=== PATIENT | female | born 1980 | race Caucasian/White ===

== ENCOUNTER 2023-05-31 10:59 | Outpatient (AMB) | payer OTHER, SELFPAY ==
--- NOTE | 2023-05-31 11:04 | AM.OFFWIN_ITS ---
Intake Vital Signs 05/31/23 11:05 Height 5 ft 11 in Weight 203 lb 8 oz BMI 28.4 BP 140/70 H Blood Pressure Location Rt brachial Position Sitting Pulse 81 Pulse Source Pulse Oximeter Pulse Oximetry (%) 98 Oxygen Delivery Method Room Air Intake Visit Reasons: back pain Intake Note: Patient is here today for upper right shoulder blade area pain ongoing for a couple of days. Patient Tobacco Use Status: Never used Tobacco Survey Compiler Required: No Ultrasound Technol: Not Required per policy Accompanied by: Self / Same As Patient Allergies No Known Allergies Allergy (Verified 05/31/23 11:27) Medication List - Last Reconciled 05/31/23 by Haydee Tate, [facility]- amoxicillin 500 mg PO TID Do you need a note to return to daycare/school/sports/work: No HPI HPI Comments History of Present Illness Details here with r shoulder blade pain - HPI hard to obtain as her timeline and recall is poor. started in the last few days hurts when twisting pain comes and goes described as it hurts worse when turning to the right assoc w/ constipation. chronic. does not take anything for this. last BM yesterday. pain in shoulder blade area was worse when straining to move bowels yesterday. has ibs, not on meds as doesnt like to take meds. not active w pcp or gi d/t insurance issues Denies vomiting, diarrhea. +headache sometimes. admits dental infection. currently on amox for this as managed by dentist. has several other chronic complaints that i advised would need add'l appt to discuss, preferably w PCP PFS Social History Housing: Apartment Patient Tobacco Use Status: Never used Tobacco service: No Current occupational status: employed Cognitive needs: No Hearing needs: No Vision needs: Yes Review of Systems Const All systems reviewed & are unremarkable except as noted in HPI and below Physical Exam Vital Signs: Last Vital Signs Pulse 81 05/31/23 11:05 BP 140/70 H 05/31/23 11:05 Pulse Ox 98 05/31/23 11:05 Oxygen Delivery Method Room Air 05/31/23 11:05 BMI result Body Mass Index 28.4 Const Other: awake alert odd affect scleras clear bilat MMM LS CTAB RRR Abd soft, nontender, hypoactive bs x 4 quads, negative murphys, no peritoneal signs negative CVAT skin to back with excoriations unable to reproduce pain. FROM MURRAY x 4 strength WNL Assessment & Plan Assessment & Plan (1) Constipation: Code(s): K59.00 - Constipation, unspecified Qualifiers: Constipation type: slow transit constipation Qualified Code(s): K59.01 - Slow transit constipation Plan: . Plan advised to take as directed. fu with PCP to ensure this has worked adn to discuss other complaints mentioned today that were not relevant to r shoulder blade pain, which i think is likely gas. Medications: New polyethylene glycol 3350 (Miralax) 17 grams PO DAILY 30 ea 3RF Coding Level of Care Code Est Pt Level 4 (79679) Diagnoses Slow transit constipation K59.01 Constipation type: slow transit constipation
[2023-05-31 11:05] VITALS: BP 140/70; PULSE 81; O2SAT 98; BMI 28.4
== END 2023-05-31 11:37 | disposition home or self-care (01) ==
PROVIDERS: Visit Provider Nurse Practitioner Family
DX: K59.01 Slow transit constipation (principal)
CPT/HCPCS: 99214

== ENCOUNTER 2023-06-01 12:01 | Outpatient (AMB) | payer OTHER, SELFPAY ==
[2023-06-01 12:02] VITALS: BP 124/68; PULSE 92; TEMP 36.7; O2SAT 99; BMI 28.2
--- NOTE | 2023-06-01 12:02 | AM.OFFWIN_ITS ---
Intake Vital Signs 06/01/23 12:02 Height 5 ft 11 in Weight 202 lb 6 oz BMI 28.2 BP 124/68 Blood Pressure Location Rt brachial Position Sitting Pulse 92 Pulse Source Pulse Oximeter Temp 98.1 F Temp Source Temporal Artery Scan Pulse Oximetry (%) 99 Oxygen Delivery Method Room Air Intake Visit Reasons: EP RT back pain dry cough [phone] Intake Note: pt is here today for rt back pain dry cough started monday Patient Tobacco Use Status: Never used Tobacco Allergies No Known Allergies Allergy (Verified 06/01/23 12:11) Do you need a note to return to daycare/school/sports/work: Yes HPI HPI Comments History of Present Illness Details The patient presents to urgent care for evaluation of right upper back pain. She states that she has had this pain for greater than 6 months and has been seen for in the past. She is questioning if this is tied to her constipation issues. She has lower abdominal discomfort that she has sought medical attention for and was diagnosed with constipation. She reports that the right upper back pain is associated with movement. There is no shortness of breath or coughing no fever chills nausea vomiting. Patient reports she is currently on amoxicillin for a dental infection. [facility] Social History Housing: Apartment Patient Tobacco Use Status: Never used Tobacco service: No Current occupational status: employed Cognitive needs: No Hearing needs: No Vision needs: Yes Review of Systems Const Denies weakness Eyes Reports no additional complaints ENT Denies dysphagia Card Reports no additional complaints, Denies dyspnea and Denies dyspnea on exertion Resp Denies cough, Denies hemoptysis, Denies dyspnea and Denies dyspnea on exertion GI Denies dysphagia Denies urinary incontinence Musc Reports back pain, Denies muscle weakness, Denies numbness and Denies tingling Neuro Denies focal weakness, Denies numbness, Denies tingling, Denies paresthesias and Denies weakness Physical Exam Vital Signs: Last Vital Signs Temp 98.1 F 06/01/23 12:02 Pulse 92 06/01/23 12:02 BP 124/68 06/01/23 12:02 Pulse Ox 99 06/01/23 12:02 Oxygen Delivery Method Room Air 06/01/23 12:02 BMI result Body Mass Index 28.2 Const General: healthy appearing and no acute distress Orientation/consciousness: patient oriented x3 Eyes General: appearance normal, both eyes and all related structures Pupils: Equal, round and reactive pupils present Resp Effort & Inspection: normal respiratory effort and able to speak in complete sentences General: Yes no CVA tenderness Back/Spine/Pelvis Back: no CVA tenderness Thoracic/Lumbar Spine: thoracic and lumbar spine normal to inspection and paraspinal muscle tenderness (spasm of paraspinal musculature) on the right greater than left Neuro General: patient oriented x3 and Normal light touch and pain sensation Cranial nerves: Yes Equal, round and reactive pupils present Assessment & Plan Assessment & Plan (1) Right-sided thoracic back pain: Code(s): M54.6 - Pain in thoracic spine Plan I reassured the patient that her symptoms are unrelated to constipation or a urinary tract infection as she was also enquiring about. We will obtain an x- ray as she reports she has never had a chest x-ray to evaluate the upper back area. I also suggested that I believe the symptoms are related to musculoskeletal such as muscle strain. Recommend ibuprofen and Tylenol. Orders: Orders XR chest 2V Today R07.81 - Pleurodynia Coding Level of Care Code Est Pt Level 3 (70815) Diagnoses Right-sided thoracic back pain M54.6
== END 2023-06-01 12:31 | disposition home or self-care (01) ==
PROVIDERS: Visit Provider Emergency Medicine
DX: M54.6 Pain in thoracic spine (principal)
CPT/HCPCS: 99213

== ENCOUNTER 2023-06-01 12:21 | Outpatient (REF) | payer OTHER, SELFPAY ==
--- NOTE | ~2023-06-01 | XR_ITS ---
EXAMINATION: XR CHEST CLINICAL INFORMATION: Chest pain. COMPARISON: None available. TECHNIQUE: 2 views of the chest were obtained. FINDINGS: No significant abnormality is noted involving the heart, lungs, mediastinum, bony thorax or soft tissues. XR/XR chest 2V IMPRESSION: Unremarkable examination.
== END 2023-06-01 12:22 | disposition home or self-care (01) ==
LOC: HO.HMGCX 12:21
PROVIDERS: PCP Internal Medicine; Visit Provider Emergency Medicine
DX: R07.81 Pleurodynia (principal)
CPT/HCPCS: 71046

== ENCOUNTER 2023-06-28 13:00 | Outpatient (AMB) | payer MEDICAID, SELFPAY ==
[2023-06-28 13:18] VITALS: BP 120/78; PULSE 98; O2SAT 98; BMI 28.5
--- NOTE | 2023-06-28 13:18 | A.OFFPC_ITS ---
Vital Signs 06/28/23 13:18 Height 5 ft 11 in Weight 204 lb 4 oz BMI 28.5 BP 120/78 Blood Pressure Location Rt brachial Position Sitting Pulse 98 Pulse Source Pulse Oximeter Pulse Oximetry (%) 98 Oxygen Delivery Method Room Air Intake Visit Reasons: back pain Allergies No Known Allergies Allergy (Verified 06/28/23 13:19) Medication List - Last Reconciled 06/28/23 by Rosanne Ring MD No Known Home Meds Tobacco use date assessed: 06/28/23 Dental Screening Dental Screen Date: 06/28/23 Did you have a dental visit in the last 12 months?: Yes Did you have a dental problem in the last 6 months where you did not have access to dental care?: No Was dental information given to patient?: Patient has dentist HPI back pain HPI Details Patient is a 43-year-old female came in today to talk about few medical problems She was last seen November of last year as an establish care visit, after that patient stopped coming as she had different insurance. Recently patient has changed her insurance so she came in. Patient have irritable bowel syndrome alternating diarrhea and constipation She also need OBGYN appointment, complaining of pressure-like feeling in pelvic area I did order labs for her last visit which she never did, I am ordering nonfasting labs today so we can have it done today. I have added urinalysis as well. Currently patient is renting a room by her mother and living there Complaining of feeling sad and depressed often along with anxiety She is seeing no therapist. After the lab reports we will set up a telemedicine visit and address other issues of the patient. [facility] Social History Housing: Apartment Patient Tobacco Use Status: Never used Tobacco e-Cigarette/Vaping Use: Never Used service: No Current occupational status: employed Cognitive needs: No Hearing needs: No Vision needs: Yes Questionnaire AUDIT C Alcohol Use Questionnaire (AUDIT-C) 1. How often do you have a drink containing alcohol?: Never 3. How often do you have six or more drinks on one occasion?: Never Total Score: 0 Score Reviewed/Action Taken: Yes Review of Systems Const Denies chills and Denies fever(s) ENT Denies epistaxis and Denies nasal discharge Card Denies chest pain Resp Denies chest congestion, Denies cough and Denies hemoptysis GI Denies nausea Skin/Breast Denies rash Neuro Reports no additional complaints Psych Reports no additional complaints Endo Reports no additional complaints Physical exam (Primary Care) Vital Signs: Last Vital Signs Pulse 98 06/28/23 13:18 BP 120/78 06/28/23 13:18 Pulse Ox 98 06/28/23 13:18 Oxygen Delivery Method Room Air 06/28/23 13:18 BMI result Body Mass Index 28.5 Tobacco/Smoking Status: Tobacco use Status Tobacco use date assessed 06/28/23 06/28/23 13:19 Patient Tobacco Use Status Never used Tobacco 06/28/23 13:19 e-Cigarette/Vaping Use Never Used 06/28/23 13:19 Const General: cooperative, comfortable and no acute distress Orientation/consciousness: patient oriented x3 HENMT Head: Yes normocephalic Eyes General: appearance normal, both eyes and all related structures Neck Neck: Yes supple Resp Effort & Inspection: normal respiratory effort, no cough and no stridor Cardio Rhythm: regular rhythm Heart sounds: S1 normal heart sound present and S2 normal heart sound present GI Other: Abdomen is benign no pain bowel sound positive General: Yes no CVA tenderness Back/Spine/Pelvis Back: no CVA tenderness Skin General skin exam: turgor normal Neuro General: patient oriented x3, tone normal and moves all extremities Extrem Right lower extremity: no edema Left lower extremity: no edema Assessment and Plan Assessment & Plan (1) Pelvic pressure in female: Code(s): R10.2 - Pelvic and perineal pain (2) Lower back pain: Code(s): M54.50 - Low back pain, unspecified Qualifiers: Back pain laterality: unspecified Chronicity: chronic Sciatica presence: without sciatica Qualified Code(s): M54.50 - Low back pain, unspecified; G89.29 - Other chronic pain (3) Major depression, recurrent: Code(s): F33.9 - Major depressive disorder, recurrent, unspecified Qualifiers: Active/Remission status: currently active Major depression episode severity: mild Qualified Code(s): F33.0 - Major depressive disorder, recurrent, mild (4) Anxiety, generalized: Code(s): F41.1 - Generalized anxiety disorder (5) Ill feeling: Code(s): R68.89 - Other general symptoms and signs (6) Irritable bowel syndrome: Code(s): K58.9 - Irritable bowel syndrome without diarrhea Qualifiers: Irritable bowel syndrome type: with both diarrhea and constipation Qualified Code(s): K58.2 - Mixed irritable bowel syndrome Plan Patient is a 43-year-old female came in today to talk about few medical problems She was last seen November of last year as an establish care visit, after that patient stopped coming as she had different insurance. Recently patient has changed her insurance so she came in. Patient have irritable bowel syndrome alternating diarrhea and constipation She also need OBGYN appointment, complaining of pressure-like feeling in pelvic area I did order labs for her last visit which she never did, I am ordering nonfasting labs today so we can have it done today. I have added urinalysis as well. Currently patient is renting a room by her mother and living there Complaining of feeling sad and depressed often along with anxiety She is seeing no therapist. After the lab reports we will set up a telemedicine visit and address other issues of the patient. Also suffers from chronic back pain, nonradiating Orders: Orders Complete Blood Count Auto Diff Today F33.9 - Major depressive disorder, recurrent, unspecified, F41.1 - Generalized anxiety disorder, K58.9 - Irritable bowel syndrome without diarrhea, M54.50 - Low back pain, unspecified, R10.2 - Pelvic and perineal pain, R68.89 - Other general symptoms and signs Vitamin D 25-OH (D2 and D3) Today F33.9 - Major depressive disorder, recurrent, unspecified, F41.1 - Generalized anxiety disorder, K58.9 - Irritable bowel syndrome without diarrhea, M54.50 - Low back pain, unspecified, R10.2 - Pelvic and perineal pain, R68.89 - Other general symptoms and signs Vitamin B12 Today F33.9 - Major depressive disorder, recurrent, unspecified, F41.1 - Generalized anxiety disorder, K58.9 - Irritable bowel syndrome without diarrhea, M54.50 - Low back pain, unspecified, R10.2 - Pelvic and perineal pain, R68.89 - Other general symptoms and signs Comprehensive Met. Panel Today F33.9 - Major depressive disorder, recurrent, unspecified, F41.1 - Generalized anxiety disorder, K58.9 - Irritable bowel syndrome without diarrhea, M54.50 - Low back pain, unspecified, R10.2 - Pelvic and perineal pain, R68.89 - Other general symptoms and signs LDL Cholesterol Direct Today F33.9 - Major depressive disorder, recurrent, unspecified, F41.1 - Generalized anxiety disorder, K58.9 - Irritable bowel syndrome without diarrhea, M54.50 - Low back pain, unspecified, R10.2 - Pelvic and perineal pain, R68.89 - Other general symptoms and signs TSH reflex Free T4 Today F33.9 - Major depressive disorder, recurrent, unsp ecified, F41.1 - Generalized anxiety disorder, K58.9 - Irritable bowel syndrome without diarrhea, M54.50 - Low back pain, unspecified, R10.2 - Pelvic and perineal pain, R68.89 - Other general symptoms and signs UA CC w/rflx Micro + Cult Today F33.9 - Major depressive disorder, recurrent, unspecified, F41.1 - Generalized anxiety disorder, K58.9 - Irritable bowel syndrome without diarrhea, M54.50 - Low back pain, unspecified, R10.2 - Pelvic and perineal pain, R68.89 - Other general symptoms and signs Coding Level of Care Code Est Pt Level 4 (14824) Diagnoses Pelvic pressure in female R10.2 Chronic low back pain without sciatica, unspecified back pain laterality M54.50; G89.29 Back pain laterality: unspecified Chronicity: chronic Sciatica presence: without sciatica Mild episode of recurrent major depressive disorder F33.0 Active/Remission status: currently active Major depression episode severity: mild Anxiety, generalized F41.1 Ill feeling R68.89 Irritable bowel syndrome with both constipation and diarrhea K58.2 Irritable bowel syndrome type: with both diarrhea and constipation
== END 2023-06-28 14:56 | disposition home or self-care (01) ==
PROVIDERS: PCP Internal Medicine; Visit Provider Internal Medicine
DX: R10.2 Pelvic and perineal pain (principal); M54.50 Low back pain, unspecified; G89.29 Other chronic pain; F33.0 Major depressive disorder, recurrent, mild; F41.1 Generalized anxiety disorder; R68.89 Other general symptoms and signs; K58.2 Mixed irritable bowel syndrome
CPT/HCPCS: 99214

== ENCOUNTER 2023-06-28 13:39 | Outpatient (REF) | payer MEDICAID, SELFPAY ==
[2023-06-28 16:27] LABS: Appearance Urine Clear; Color Urine Yellow; Glucose Urine UA Negative (Negative); Leukocyte Esterase Urine Trace (Negative); Nitrite Urine Negative (Negative); Specific Gravity - Urine 1.025 (1.005-1.025); UMIC TRIGGER UACC YES; Urine Blood Negative (Negative); Urine Ketones Trace mg/dL (Negative); Urine Protein Negative (Neg-Trace)
[2023-06-28 16:31] LABS: MANUAL DIFF FLAG NO
[2023-06-28 16:33] LABS: Bacteria Urine Trace (None Seen); Hyaline Casts Urine 0-2 /LPF (0-2); RBC Urine 0-2 /HPF (0-2); WBC Urine 0-5 /HPF (0-5)
[2023-06-28 16:43] LABS: Basophils Absolute Auto 0.1 X10*3/uL (0.0-0.2); Basophils Percent Auto 0.8 % (0-2); Eosinophils Absolute Auto 0.2 X10*3/uL (0.0-0.4); Eosinophils Percent Auto 2.4 % (0-4); Hematocrit 42.8 % (37.0-47.0); Hemoglobin 13.6 g/dl (12.0-16.0); Imm Gran Abs Auto 0.02 X10*3/uL (0.00-0.03); Imm Gran Pct Auto 0.2 % (0.0-0.4); Mean Corpuscular HGB Conc 31.8 g/dl (31.0-35.0); Mean Corpuscular Hemoglobin 28.6 pg (27.0-33.0); Mean Corpuscular Volume 89.9 fL (80.0-98.0); Mean Platelet Volume 11.3 fL (9.4-12.3); Monocytes Absolute Auto 0.7 X10*3/uL (0.1-1.2); Monocytes Percent Auto 7.7 % (2-11); Neutrophils Absolute Auto 5.4 x10*3/uL (2.0-8.3); Neutrophils Percent Auto 64.9 % (45-73); Platelet Count 290 X10*3/uL (160-400); Red Blood Count 4.76 X10*6/uL (4.20-5.50); Red Cell Distribution Width 13.4 % (11.0-16.0); White Blood Count 8.4 X10*3/uL (4.8-10.8)
[2023-06-28 17:05] LABS: Alanine Aminotransferase 15 U/L (0-31); Alkaline Phosphatase 64 U/L (39-117); Anion Gap 11 (12-20); Aspartate Amino Transferase 15 U/L (5-31); Bilirubin Total 0.4 mg/dL (0.0-1.0); Blood Urea Nitrogen 10 mg/dL (9-16); Calcium 9.4 mg/dL (8.4-10.2); Carbon Dioxide 28 mmol/L (22-29); Chloride 104 mmol/L (96-108); Estimated Glomerular Filt Rate > 60; Glucose Random 93 mg/dL (60-115); Potassium 3.6 mmol/L (3.3-5.1); Sodium 139 mmol/L (135-145)
[2023-06-28 17:22] LABS: TSH reflex Free T4 1.25 uIU/mL (0.32-4.0)
[2023-06-28 17:26] LABS: Vitamin B12 324 pg/mL (200-900)
[2023-06-29 14:02] LABS: LDL Cholesterol Direct 124 mg/dL (<100)
[2023-07-02 13:04] LABS: Vitamin D 25-OH, D2 <4 ng/mL; Vitamin D 25-OH, D3 14 ng/mL; Vitamin D 25-OH, Total 14 ng/mL (30-100)
== END 2023-06-28 13:40 | disposition home or self-care (01) ==
LOC: HO.HMGCLDS 13:39
PROVIDERS: PCP Internal Medicine; Visit Provider Internal Medicine
DX: R68.89 Other general symptoms and signs (principal); R10.2 Pelvic and perineal pain; M54.50 Low back pain, unspecified; K58.9 Irritable bowel syndrome, unspecified; F33.9 Major depressive disorder, recurrent, unspecified; F41.1 Generalized anxiety disorder
CPT/HCPCS: 36415; 80053; 81001; 82306; 82607; 83721; 84443; 85025

== ENCOUNTER 2023-06-29 08:32 | Outpatient (AMB) | payer OTHER, SELFPAY ==
--- NOTE | 2023-06-29 08:32 | A.OFFPC_ITS ---
Vital Signs 06/29/23 08:33 Height 5 ft 11 in Intake Visit Reasons: F/U [phone] Allergies No Known Allergies Allergy (Verified 06/29/23 08:32) Medication List - Last Reconciled 06/29/23 by Rosanne Ring MD No Known Home Meds Tobacco use date assessed: 06/29/23 Dental Screening Dental Screen Date: 06/29/23 Did you have a dental visit in the last 12 months?: Yes Did you have a dental problem in the last 6 months where you did not have access to dental care?: No Was dental information given to patient?: Patient has dentist HPI F/U [phone] HPI Details This is a telemedicine follow-up Patient was seen yesterday with multiple complaints She is depressed she admit also have anxiety Patient have a chronic lower back pain chronic mid back pain, she says that when she stands for prolonged period of time the pain gets worse But when she lays down it is better Pain is nonradiating Also complaining of headaches off and on, patient was concerned about diabetes Labs done yesterday reviewed with the patient which looks fine There is no anemia no signs of elevated white count infection, kidney functions are intact liver functions are intact, and her blood sugar is fine B12 level is normal LDL is still pending Vitamin-D still pending Thyroid test is within normal limit. I have sent message to OBGYN yesterday they wanted a new referral which I have placed for the patient I am starting her on Lexapro 10 mg, notified patient to start taking that at night I have also sent message to behavior health coordinator so we can set up patient with a therapist We will set up a follow-up appointment in 2 or 3 weeks to see how she is doing with new medication. [facility] Social History Housing: Apartment Patient Tobacco Use Status: Never used Tobacco e-Cigarette/Vaping Use: Never Used service: No Current occupational status: employed Cognitive needs: No Hearing needs: No Vision needs: Yes Questionnaire AUDIT C Alcohol Use Questionnaire (AUDIT-C) 1. How often do you have a drink containing alcohol?: Never 3. How often do you have six or more drinks on one occasion?: Never Total Score: 0 Score Reviewed/Action Taken: Yes Review of Systems Const Denies chills and Denies fever(s) ENT Denies epistaxis and Denies nasal discharge Card Denies chest pain Resp Denies chest congestion, Denies cough and Denies hemoptysis GI Denies diarrhea and Denies nausea Skin/Breast Denies rash Neuro Reports no additional complaints Psych Reports no additional complaints Endo Reports no additional complaints Physical exam (Primary Care) Tobacco/Smoking Status: Tobacco use Status Tobacco use date assessed 06/29/23 06/29/23 08:33 Patient Tobacco Use Status Never used Tobacco 06/29/23 08:33 e-Cigarette/Vaping Use Never Used 06/29/23 08:33 Telehealth Telehealth Location of provider rendering services: practice address Location of patient: address on file Patient Identification confirmed using: Name, : Yes Telehealth method: video (attempted) Patient verbally consented to treatment: Yes Patient verbally consented to billing insurance company: Yes Patient informed of any privacy concerns related to visit: Yes Results Reviewed Results Reviewed: labs reviewed Assessment and Plan Assessment & Plan (1) Major depression, recurrent: Code(s): F33.9 - Major depressive disorder, recurrent, unspecified Qualifiers: Active/Remission status: currently active Major depression episode severity: mild Qualified Code(s): F33.0 - Major depressive disorder, recurrent, mild (2) Lower back pain: Code(s): M54.50 - Low back pain, unspecified Qualifiers: Back pain laterality: unspecified Chronicity: chronic Sciatica presence: without sciatica Qualified Code(s): M54.50 - Low back pain, unspecified; G89.29 - Other chronic pain (3) Anxiety, generalized: Code(s): F41.1 - Generalized anxiety disorder (4) Ill feeling: Code(s): R68.89 - Other general symptoms and signs (5) Irritable bowel syndrome: Code(s): K58.9 - Irritable bowel syndrome without diarrhea Qualifiers: Irritable bowel syndrome type: with both diarrhea and constipation Qualified Code(s): K58.2 - Mixed irritable bowel syndrome Plan This is a telemedicine follow-up Patient was seen yesterday with multiple complaints She is depressed she admit also have anxiety Patient have a chronic lower back pain chronic mid back pain, she says that when she stands for prolonged period of time the pain gets worse But when she lays down it is better Pain is nonradiating Also complaining of headaches off and on, patient was concerned about diabetes Labs done yesterday reviewed with the patient which looks fine There is no anemia no signs of elevated white count infection, kidney functions are intact liver functions are intact, and her blood sugar is fine B12 level is normal LDL is still pending Vitamin-D still pending Thyroid test is within normal limit. I have sent message to [facility] yesterday they wanted a new referral which I have placed for the patient I am starting her on Lexapro 10 mg, notified patient to start taking that at night I have also sent message to behavior health coordinator so we can set up patient with a therapist We will set up a follow-up appointment in 2 or 3 weeks to see how she is doing with new medication. Her urine test shows trace of leuk Estrace, patient have Levaquin at home, she will take 1 tablet to clear that. Continued to have irritable bowel symptoms, which present with mixed diarrhea alternating with constipation. Orders: Orders XR lumbar spine 2-3V Today M54.50 - Low back pain, unspecified Medications: New escitalopram oxalate (Lexapro) 10 mg PO DAILY 30 tabs 0RF Coding Level of Care Code Tele Est Pt Level 4 (98504) Diagnoses Mild episode of recurrent major depressive disorder F33.0 Active/Remission status: currently active Major depression episode severity: mild Chronic low back pain without sciatica, unspecified back pain laterality M54.50; G89.29 Back pain laterality: unspecified Chronicity: chronic Sciatica presence: without sciatica Anxiety, generalized F41.1 Ill feeling R68.89 Irritable bowel syndrome with both constipation and diarrhea K58.2 Irritable bowel syndrome type: with both diarrhea and constipation Time Spent (min) 33 Comment 3 prep, 25 with patient, 5 charting
== END 2023-06-29 09:28 | disposition home or self-care (01) ==
LOC: HO.HMGC 08:32
PROVIDERS: PCP Internal Medicine; Visit Provider Internal Medicine
DX: F33.0 Major depressive disorder, recurrent, mild (principal); M54.50 Low back pain, unspecified; G89.29 Other chronic pain; F41.1 Generalized anxiety disorder; R68.89 Other general symptoms and signs; K58.2 Mixed irritable bowel syndrome
CPT/HCPCS: 99214

== ENCOUNTER 2023-07-20 08:37 | Outpatient (AMB) | payer OTHER, SELFPAY ==
--- NOTE | 2023-07-20 08:59 | MHC.PC.OV ---
Vital Signs 07/20/23 08:59 Height 5 ft 11 in Intake Visit Reasons: 3 Wk F/u ~[phone] Allergies No Known Allergies Allergy (Verified 07/20/23 08:59) Medication List - Last Reconciled 07/20/23 by Rosanne Ring MD escitalopram oxalate (Lexapro) 10 mg PO DAILY Tobacco use date assessed: 07/20/23 Dental Screening Dental Screen Date: 07/20/23 Did you have a dental visit in the last 12 months?: Yes Did you have a dental problem in the last 6 months where you did not have access to dental care?: No Was dental information given to patient?: Patient has dentist HPI 3 Wk F/u ~[phone] HPI Details Patient is a 43-year-old female this is a telemedicine follow-up I prescribed Escitalopram 10 mg to patient few days ago however she has not started it. She says that she is not sure if she want to take the medication or not. Encouraged patient to give it a try, at least take it for a month and then decide if she want to continue or not Patient continued to feel depressed, she is seeing a therapist Continued to feel tired, and is concerned about her here as well I have sent multivitamin tablet also she is to start taking that 1 in the morning Patient is to get back to me in 3 weeks if she decide to take Escitalopram [facility] Social History Housing: Apartment Patient Tobacco Use Status: Never used Tobacco e-Cigarette/Vaping Use: Never Used service: No Current occupational status: employed Cognitive needs: No Hearing needs: No Vision needs: Yes Questionnaire AUDIT C Alcohol Use Questionnaire (AUDIT-C) 1. How often do you have a drink containing alcohol?: Never 3. How often do you have six or more drinks on one occasion?: Never Total Score: 0 Score Reviewed/Action Taken: Yes Review of Systems Const Denies chills and Denies fever(s) ENT Denies epistaxis and Denies nasal discharge Card Denies chest pain Resp Denies chest congestion, Denies cough and Denies hemoptysis GI Denies diarrhea and Denies nausea Skin/Breast Denies rash Neuro Reports no additional complaints Psych Reports no additional complaints Endo Reports no additional complaints Physical exam (Primary Care) Tobacco/Smoking Status: Tobacco use Status Tobacco use date assessed 07/20/23 07/20/23 08:59 Patient Tobacco Use Status Never used Tobacco 07/20/23 08:59 e-Cigarette/Vaping Use Never Used 07/20/23 08:59 Telehealth Telehealth Location of provider rendering services: practice address Location of patient: address on file Patient Identification confirmed using: Name, : Yes Telehealth method: voice only Patient verbally consented to treatment: Yes Patient verbally consented to billing insurance company: Yes Patient informed of any privacy concerns related to visit: Yes Minutes spent on Phone/Video with Pt.: 13 Assessment and Plan Assessment & Plan (1) Major depression, recurrent: Code(s): F33.9 - Major depressive disorder, recurrent, unspecified Qualifiers: Active/Remission status: currently active Major depression episode severity: mild Qualified Code(s): F33.0 - Major depressive disorder, recurrent, mild (2) Anxiety, generalized: Code(s): F41.1 - Generalized anxiety disorder Plan Patient is a 43-year-old female this is a telemedicine follow-up I prescribed Escitalopram 10 mg to patient few days ago however she has not started it. She says that she is not sure if she want to take the medication or not. Encouraged patient to give it a try, at least take it for a month and then decide if she want to continue or not Patient continued to feel depressed, she is seeing a therapist Continued to feel tired, and is concerned about her here as well I have sent multivitamin tablet also she is to start taking that 1 in the morning Patient is to get back to me in 3 weeks if she decide to take Escitalopram Medications: New multivitamin 1 tab PO QAM 90 tabs 3RF Coding Level of Care Code Tele Est Pt Level 3 (89239) Diagnoses Mild episode of recurrent major depressive disorder F33.0 Active/Remission status: currently active Major depression episode severity: mild Anxiety, generalized F41.1
== END 2023-07-20 13:08 | disposition home or self-care (01) ==
LOC: HO.HMGC 08:39
PROVIDERS: PCP Internal Medicine; Visit Provider Internal Medicine
DX: F33.0 Major depressive disorder, recurrent, mild (principal); F41.1 Generalized anxiety disorder
CPT/HCPCS: 99213

== ENCOUNTER 2023-08-11 13:16 | Outpatient (AMB) | payer OTHER, SELFPAY ==
[2023-08-11 13:19] VITALS: BP 144/86; PULSE 85; O2SAT 97; BMI 28.2
--- NOTE | 2023-08-11 13:19 | A.OFFPC_ITS ---
Vital Signs 08/11/23 13:19 Height 5 ft 11 in Weight 202 lb 4 oz BMI 28.2 BP 144/86 H Blood Pressure Location Lt brachial Position Sitting Pulse 85 Pulse Source Pulse Oximeter Pulse Oximetry (%) 97 Oxygen Delivery Method Room Air Intake Visit Reasons: constipation, poor appetite Allergies No Known Allergies Allergy (Verified 08/11/23 13:29) Medication List - Last Reconciled 08/11/23 by Rosanne Ring MD escitalopram oxalate (Lexapro) 10 mg PO DAILY multivitamin 1 tab PO QAM Tobacco use date assessed: 08/11/23 Dental Screening Dental Screen Date: 08/11/23 Did you have a dental visit in the last 12 months?: Yes Did you have a dental problem in the last 6 months where you did not have access to dental care?: No Was dental information given to patient?: Patient has dentist HPI constipation, poor appetite HPI Details Patient continued to feel anxious and depressed She has still not taken citalopram that I prescribed for her She has contact for therapist but has not either 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, which we will arrange for Labs done recently reviewed with the patient which came back within normal limit except vitamin-D I have sent vitamin-D supplement Patient is complaining of constipation which is something new She does not want to take any medication however is interested in talking to Gastroenterology, referral placed [facility] Social History Housing: Apartment Patient Tobacco Use Status: Never used Tobacco e-Cigarette/Vaping Use: Never Used service: No Current occupational status: employed Cognitive needs: No Hearing needs: No Vision needs: Yes Questionnaire AUDIT C Alcohol Use Questionnaire (AUDIT-C) 1. How often do you have a drink containing alcohol?: Never 3. How often do you have six or more drinks on one occasion?: Never Total Score: 0 Score Reviewed/Action Taken: Yes Review of Systems Const Denies chills and Denies fever(s) ENT Denies epistaxis and Denies nasal discharge Card Denies chest pain Resp Denies chest congestion, Denies cough and Denies hemoptysis GI Denies diarrhea and Denies nausea Skin/Breast Denies rash Neuro Reports no additional complaints Psych Reports no additional complaints Endo Reports no additional complaints Physical exam (Primary Care) Vital Signs: Last Vital Signs Pulse 85 08/11/23 13:19 BP 144/86 H 08/11/23 13:19 Pulse Ox 97 08/11/23 13:19 Oxygen Delivery Method Room Air 08/11/23 13:19 BMI result Body Mass Index 28.2 Tobacco/Smoking Status: Tobacco use Status Tobacco use date assessed 08/11/23 08/11/23 13:30 Patient Tobacco Use Status Never used Tobacco 08/11/23 13:19 e-Cigarette/Vaping Use Never Used 08/11/23 13:19 Const General: cooperative, comfortable and no acute distress Orientation/consciousness: patient oriented x3 HENMT Head: Yes normocephalic Eyes General: appearance normal, both eyes and all related structures Neck Neck: Yes supple Resp Effort & Inspection: normal respiratory effort, no cough and no stridor Cardio Rhythm: regular rhythm Heart sounds: S1 normal heart sound present and S2 normal heart sound present Skin General skin exam: turgor normal Neuro General: patient oriented x3, tone normal and moves all extremities Extrem Right lower extremity: no edema Left lower extremity: no edema Assessment and Plan Assessment & Plan (1) Constipation: Code(s): K59.00 - Constipation, unspecified Qualifiers: Constipation type: slow transit constipation Qualified Code(s): K59.01 - Slow transit constipation (2) Irritable bowel syndrome: Code(s): K58.9 - Irritable bowel syndrome without diarrhea Qualifiers: Irritable bowel syndrome type: with both diarrhea and constipation Qualified Code(s): K58.2 - Mixed irritable bowel syndrome (3) Major depression, recurrent: Code(s): F33.9 - Major depressive disorder, recurrent, unspecified Qualifiers: Active/Remission status: currently active Major depression episode severity: mild Qualified Code(s): F33.0 - Major depressive disorder, recurrent, mild (4) Anxiety, generalized: Code(s): F41.1 - Generalized anxiety disorder Plan Patient continued to feel anxious and depressed She has still not taken citalopram that I prescribed for her She has contact for therapist but has not either 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, which we will arrange for Labs done recently reviewed with the patient which came back within normal limit except vitamin-D I have sent vitamin-D supplement Patient is complaining of constipation which is something new She does not want to take any medication however is interested in talking to Gastroenterology, referral placed Orders: Referrals Gastroenterology Referral K58.9 - Irritable bowel syndrome without diarrhea, K59.00 - Constipation, unspecified Medications: New cholecalciferol (vitamin D3) 25 mcg PO DAILY 90 caps 0RF 90 days Coding Level of Care Code Est Pt Level 3 (01467) Diagnoses Slow transit constipation K59.01 Constipation type: slow transit constipation Irritable bowel syndrome with both constipation and diarrhea K58.2 Irritable bowel syndrome type: with both diarrhea and constipation Mild episode of recurrent major depressive disorder F33.0 Active/Remission status: currently active Major depression episode severity: mild Anxiety, generalized F41.1
== END 2023-08-11 15:53 | disposition home or self-care (01) ==
PROVIDERS: PCP Internal Medicine; Visit Provider Internal Medicine
DX: K59.01 Slow transit constipation (principal); K58.2 Mixed irritable bowel syndrome; F33.0 Major depressive disorder, recurrent, mild; F41.1 Generalized anxiety disorder
CPT/HCPCS: 99213

== ENCOUNTER 2023-09-07 16:35 | Outpatient (REF) | payer OTHER, SELFPAY | END 2023-09-07 16:36 | disposition home or self-care (01) | LOC: HO.LAB 16:35 | PROVIDERS: Visit Provider Internal Medicine | DX: Z13.89 Encounter for screening for other disorder (principal) ==

== ENCOUNTER 2024-07-25 14:37 | Outpatient (AMB) | payer OTHER, SELFPAY ==
[2024-07-25 14:54] VITALS: BP 138/82; PULSE 83; TEMP 37.1; O2SAT 98
--- NOTE | 2024-07-25 14:54 | AM.OFFWIN_ITS ---
Intake Vital Signs 07/25/24 14:54 Height 5 ft 11 in BMI Reason not done Patient refused/unable BP 138/82 Blood Pressure Location Lt brachial Position Sitting Pulse 83 Pulse Source Pulse Oximeter Temp 98.7 F Temp Source Oral Pulse Oximetry (%) 98 Intake Visit Reasons: EP bilat foot pain Patient Tobacco Use Status: Never used Tobacco Allergies No Known Allergies Allergy (Verified 07/25/24 14:59) Do you need a note to return to daycare/school/sports/work: No HPI HPI Comments History of Present Illness Details History of Present Illness - The patient is a 44-year-old female pr esenting with swollen feet. - Swelling in both feet began a week ago without associated pain. - There are no respiratory symptoms such as shortness of breath or wheezing, and no known cardiac or kidney issues or other chronic issues. - The patient has been standing more edelmira n usual due to cooking, which she states exacerbates the swelling. - She does not like salt and denies any increased use of salt recently. -She denies any long plane rides, histor y of cancer, bedridden/recent surgical history, history of smoking or personal or family history of DVT. - A corn is present on the side of each foot, causing burning pain. Previous treatment with [id number] remedies has not been effective. - Patient cannot make her PCP appt tomor row as she does not have a ride Physical Exam General: Cooperative, healthy appearing, comfortable, no acute distress and well developed Orientation: Patient oriented x3 Limitations: No limitations Head: Normal to inspection Ears: Hearing grossly normal bilaterally Nose: Normal external nose present Face and sinus: Normal facial exam Eyes: Appearance normal, both eyes and all related structures Neck: Normal visual inspection and Yes full ROM Respiratory: Normal respiratory effort and able to speak in complete sentences. Skin: No rashes or lesions noted Neuro: Patient oriented x3 Extremities: Bilateral leg edema, R>L, right is 1+ pitting, left is non pitting, no skin changes, full ROM knee, ankle, foot and toes. NVI. Negative Scarlet's bilaterally PFSH Social History Housing: Apartment Patient Tobacco Use Status: Never used Tobacco e-Cigarette/Vaping Use: Never Used service: No Current occupational status: employed Cognitive needs: No Hearing needs: No Vision needs: Yes Review of Systems Const All systems reviewed & are unremarkable except as noted in HPI and below Physical Exam Vital Signs: Last Vital Signs Temp 98.7 F 07/25/24 14:54 Pulse 83 07/25/24 14:54 BP 138/82 07/25/24 14:54 Pulse Ox 98 07/25/24 14:54 Assessment & Plan Assessment & Plan (1) Bilateral edema of lower extremity: Code(s): R60.0 - Localized edema Plan: VSS, pt well appearing. Wells score for DVT is 0, negative Scarlet's so very unlikely DVT. To address the bilateral pedal edema, compression stockings with light compression are recommended to reduce the swelling. These should be worn daily and removed at night, unless further night-time use is needed. I have moved her appt for tomorrow (which she cannot make) to 8 days from now so she can follow up to see how the stockings worked and get follow up work up, as appropriate, by her PCP. The patient should continue using [id number] treatments for the corn, with a follow-up with PCP advised if these measures are ineffective, potentially leading to a referral to a critical care physician assistant for further treatment if necessary. Patient was informed and verbally consented to the use of an ambient scribe for clinic note documentation during this visit. Coding Level of Care Code Est Pt Level 3 (99288) Diagnoses Bilateral edema of lower extremity R60.0
== END 2024-07-25 15:37 | disposition home or self-care (01) ==
PROVIDERS: PCP Internal Medicine; Visit Provider Physician Assistant
DX: R60.0 Localized edema (principal)

== ENCOUNTER → 2024-07-25 14:37 | Outpatient (BNVA) | payer OTHER, SELFPAY | PROVIDERS: PCP Internal Medicine | DX: R60.0 Localized edema (principal) | CPT/HCPCS: 99212 ==

== ENCOUNTER 2024-08-02 12:32 | Outpatient (AMB) | payer OTHER, SELFPAY ==
[2024-08-02 12:34] VITALS: BP 136/82; PULSE 82; TEMP 36.7; O2SAT 98; BMI 29.4
--- NOTE | 2024-08-02 12:34 | MHC.PC.OV ---
Vital Signs 08/02/24 12:34 Height 5 ft 11 in Weight 211 lb BMI 29.4 BP 136/82 Blood Pressure Location Rt brachial Position Sitting Pulse 82 Pulse Source Pulse Oximeter Temp 98.0 F Temp Source Oral Pulse Oximetry (%) 98 Intake Visit Reasons: f/up walk in - bilat feet swelling Allergies No Known Allergies Allergy (Verified 08/02/24 12:34) Medication List - Last Reconciled 08/02/24 by Rosanne Ring MD cholecalciferol (vitamin D3) 25 mcg PO DAILY 90 days escitalopram oxalate (Lexapro) 10 mg PO DAILY multivitamin 1 tab PO QAM Tobacco use date assessed: 08/02/24 Dental Screening Dental Screen Date: 08/02/24 Did you have a dental visit in the last 12 months?: Yes Did you have a dental problem in the last 6 months where you did not have access to dental care?: No Was dental information given to patient?: Patient has dentist HPI f/up walk in - bilat feet swelling HPI Details - The patient is a 44-year-old female presenting with bilateral pedal edema. - Swelling initiated abruptly two weeks ago, affecting both feet, noted more significantly in the right foot. - She reports no shortness of breath and denies abdominal discomfort. - An existing foot callus is contributing to discomfort, described as burning, yet not connected to edema. - Additionally, a plantar wart identified as the source of burning pain podiatry referral created Problem List - Bilateral pedal edema - Plantar wart - Foot callus Patient Instructions - Begin taking the prescribed water pill once daily to help reduce foot swelling. - Elevate your feet as much as possible. - Visit the lab next door for further testing as soon as possible. - Use a pumice stone gently on the callus after taking a shower when the skin is softer. - see assistant associate professor for foot care - Schedule a follow-up in two weeks for further evaluation and progress assessment. Review of Systems - General: No fever no chills - Neurological: No headaches no dizziness - Ear nose throat: No sore throat no hearing difficulty no ear pain - Cardiovascular: No syncope, no chest pain, no palpitations - Gastrointestinal: No nausea vomiting or diarrhea - Endocrine: No polyuria polydipsia no heat intolerance - Genitourinary: No dysuria , no blood in urine Physical Exam General: No acute distress HEENT: No acute findings Neck: Supple Respiratory system: Able to talk in full sentences, no audible wheeze cardiovascular: S1-S2 regular in rate and rhythm Gastrointestinal: No pain Extremities: Swelling of both feet, and jaramillo, mildly pitting, thick skin site of foot close to 5th toe causing pain when rubbed against the footware UTILITY WORKER: Alert awake oriented x3 motor sensory intact Skin: Normal turgor, presence of callus and possible wart on the side of the foot PFSH Surgical History No pertinent past surgical history Social History Housing: Apartment Patient Tobacco Use Status: Never used Tobacco e-Cigarette/Vaping Use: Never Used service: No Current occupational status: employed Cognitive needs: No Hearing needs: No Vision needs: Yes Questionnaire PHQ-9 Over the last 2 weeks, how often have you been bothered by any of the following problems? 1. Little interest or pleasure in doing things: not at all 2. Feeling down, depressed, or hopeless: not at all 3. Trouble falling or staying asleep, or sleeping too much: not at all 4. Feeling tired or having little energy: not at all 5. Poor appetite or overeating: not at all 6. Feeling bad about yourself - or that you are a failure or have let yourself or your family down: several days 7. Trouble concentrating on things, such as reading the newspaper or watching television: not at all 8. Moving or speaking so slowly that other people could have noticed. Or the opposite - being so fidgety or restless that you have been moving around a lot more than usual: not at all 9. Thoughts that you would be better off or of hurting yourself in some way: not at all Total score: 1 Depression Screening Interpretation: Negative Depression Screening Done: Yes 96372 - PHQ-9 Billing: Yes Source: Developed by Drs. Abdirahman Bey, Renee Castrejon, Horacio Nelson and colleagues, with an educational bill from [employer]. Thrive Questionnaire Date Thrive assessed: 08/02/24 I am a: Patient What is your living situation today?: I have a steady place to live Within the past 12 months, did the food you bought not last and you didn't have the money to get more?: Never true Within the past 12 months, did you worry whether your food would run out before you got money to buy more?: Never true Do you have trouble paying for medicines?: No Do you have trouble getting transportation to medical appointments?: No Do you have trouble paying your heating and electricity bill?: No Do you have trouble taking care of your child, family member or friend?: No Do you have trouble with day-to-day activities such as bathing, preparing meals, shopping, managing finances, etc.?: No Are you currently unemployed and looking for a job?: Yes Are you interested in more education?: No Please select the resources that you would like help with: Transportation and Utilities Currently or been in a relationship where the following occur: No concerns reported THRIVE Score: 0 AUDIT C Alcohol Use Questionnaire (AUDIT-C) 1. How often do you have a drink containing alcohol?: Monthly or less 2. How many drinks containing alcohol do you have on a typical day when you are drinking?: 1 or 2 3. How often do you have six or more drinks on one occasion?: Never Total Score: 1 Score Reviewed/Action Taken: Yes GIOVANI-7 AMB Questionnaire GIOVANI-7 Date GIOVANI - 7 assessed: 08/02/24 Feeling nervous, anxious, or on edge: 1 = Several days Not being able to stop or control worryin = Several days Worrying too much about different things: 1 = Several days Trouble relaxin = Not at all Being so restless that it is hard to sit still: 0 = Not at all Becoming easily annoyed or irritable: 1 = Several days Feeling afraid as if something awful might happen: 0 = Not at all Total GIOVANI-7 score (0-4 normal; 5-9 mild; 10-14 moderate; 15-21 severe): 4 Source: Developed by Drs. Abdirahman Bey, Renee Castrejon, Horacio Nelson and colleagues, with an educational bill from [employer] GIOVANI-7 Assessment Billing GIOVANI-7 Assessment Tool: GIOVANI-7 Assessment 50045 Physical exam (Primary Care) Vital Signs: Last Vital Signs Temp 98.0 F 08/02/24 12:34 Pulse 82 08/02/24 12:34 BP 136/82 08/02/24 12:34 Pulse Ox 98 08/02/24 12:34 BMI result Body Mass Index 29.4 Tobacco/Smoking Status: Tobacco use Status Tobacco use date assessed 08/02/24 08/02/24 12:35 Patient Tobacco Use Status Never used Tobacco 08/02/24 12:35 e-Cigarette/Vaping Use Never Used 08/02/24 12:35 PHQ-9: PHQ-9 Score PHQ-9: Total score 1 08/02/24 12:54 Depression Screening Interpretation: Negative Thrive Assessment: Date of Thrive Assessment Date Thrive assessed 08/02/24 08/02/24 12:35 Currently or been in a relationship where the following occur: No concerns reported Coding Level of Care Code Est Pt Level 4 (84988) Diagnoses Bilateral edema of lower extremity R60.0 Foot pain, bilateral M79.671; M79.672 Additional Codes GIOVANI-7 Assessment Billing - GIOVANI-7 Assessment Tool: GIOVANI-7 Assessment 39792 ([id number]) PHQ-9 - 36404 - PHQ-9 Billing: Yes ([id number]) Assessment & Plan Assessment & Plan (1) Bilateral edema of lower extremity: Code(s): R60.0 - Localized edema Category: Medical (2) Foot pain, bilateral: Code(s): M79.671 - Pain in right foot; M79.672 - Pain in left foot Category: Medical Plan - The patient is a 44-year-old female presenting with bilateral pedal edema. - Swelling initiated abruptly two weeks ago, affecting both feet, noted more significantly in the right foot. - She reports no shortness of breath and denies abdominal discomfort. - An existing foot callus is contributing to discomfort, described as burning, yet not connected to edema. - Additionally, a plantar wart identified as the source of burning pain podiatry referral created Problem List - Bilateral pedal edema - Plantar wart - Foot callus Patient Instructions - Begin taking the prescribed water pill once daily to help reduce foot swelling. - Elevate your feet as much as possible. - Visit the lab next door for further testing as soon as possible. - Use a pumice stone gently on the callus after taking a shower when the skin is softer. - see assistant associate professor for foot care - Schedule a follow-up in two weeks for further evaluation and progress assessment. Orders: Orders LDL Cholesterol Direct Today M79.671 - Pain in right foot, M79.672 - Pain in left foot, R60.0 - Localized edema TSH reflex Free T4 Today M79.671 - Pain in right foot, M79.672 - Pain in left foot, R60.0 - Localized edema Complete Blood Count Auto Diff Today M79.671 - Pain in right foot, M79.672 - Pain in left foot, R60.0 - Localized edema Comprehensive Met. Panel Today M79.671 - Pain in right foot, M79.672 - Pain in left foot, R60.0 - Localized edema Vitamin D 25-OH (D2 and D3) Today M79.671 - Pain in right foot, M79.672 - Pain in left foot, R60.0 - Localized edema Referrals Podiatry Referral M79.671 - Pain in right foot, M79.672 - Pain in left foot Medications: New furosemide (Lasix) 20 mg PO QAM 14 tabs 0RF
== END 2024-08-02 13:00 | disposition home or self-care (01) ==
PROVIDERS: PCP Internal Medicine; Visit Provider Internal Medicine
DX: R60.0 Localized edema (principal); M79.671 Pain in right foot; M79.672 Pain in left foot

== ENCOUNTER → 2024-08-02 12:32 | Outpatient (BNVA) | payer OTHER, SELFPAY | PROVIDERS: PCP Internal Medicine; Visit Provider Internal Medicine | DX: R60.0 Localized edema (principal); M79.671 Pain in right foot; M79.672 Pain in left foot | CPT/HCPCS: 96127; 99212 ==

== ENCOUNTER 2025-02-19 12:09 | Outpatient (AMB) | payer OTHER, SELFPAY ==
[2025-02-19 12:18] VITALS: BP 136/82; PULSE 90; O2SAT 96; BMI 27.2
--- NOTE | 2025-02-19 12:18 | A.OFFPC_ITS ---
Vital Signs 02/19/25 12:18 Height 5 ft 11 in Weight 195 lb BMI 27.2 BP 136/82 Blood Pressure Location Lt brachial Position Sitting Pulse 90 Pulse Source Pulse Oximeter Pulse Oximetry (%) 96 Intake Visit Reasons: Annual PE Allergies No Known Allergies Allergy (Verified 02/19/25 12:18) Medication List - Last Reconciled 02/19/25 by Rosanne Ring MD cholecalciferol (vitamin D3) 25 mcg PO DAILY 90 days escitalopram oxalate (Lexapro) 10 mg PO DAILY furosemide (Lasix) 20 mg PO QAM multivitamin 1 tab PO QAM Tobacco use date assessed: 08/02/24 Dental Screening Dental Screen Date: 08/02/24 HPI Annual PE HPI Details History of Present Illness The patient is a 44-year-old female presenting with gastrointestinal symptoms and for an annual physical examination. Anxiety: - The patient previously took escitalopr am for anxiety but has stopped. - Denies current need for medication; re ports no ongoing anxiety symptoms. Gastritis: - Patient reports episodes of nausea, of ten after consuming certain foods such as coffee, acidic foods like spaghetti and pizza. - Experiences bloating, suggesting irrit ation in the stomach lining. Hair Loss: - Reports significant hair loss but suki es seeing whole strands falling out. Constipation: - Reports stool as hard and bulky, indic ating constipation. - Instruction was given to increase fibe r intake and hydrate more. Vitamin D Deficiency: - Not currently taking any medications, including vitamin D supplements. - Vitamin D deficiency was mentioned as a possible contributing factor to hair loss. Tetanus Immunization Overdue: - Per conversation, tetanus vaccine is d ue patient was instructed to get it from pharmacy Social History: - Patient denies current medication use. - Dietary habits: Patient consumes foods that may irritate the stomach (coffee, acidic foods). Health Maintenance - Mammogram: Patient is overdue for a [facility]. - Tetanus vaccine: Discussed the need fo r vaccination every 10 years. - Laboratory tests: Blood work for anemi a, kidney function, liver enzymes, cholesterol, and additional urine test arranged. Lab order was placed in July and still not done Patient Instructions - Conduct blood work as requested today. - Avoid foods that may irritate the stom ach such as coffee and acidic foods. - Increase hydration and dietary fiber t o help with constipation. - Discussed stool softeners as an option if necessary. - Begin treatment with omeprazole for st omach irritation. - Review dietary patterns that may affec t gastric symptoms. Telemedicine in 2 weeks to follow-up on bloating and nausea, and Labs Physical exam in 1 year Review of Systems - General: No fever no chills - Neurological: No headaches no dizzin ess - Ear nose throat: No sore throat no hearing difficulty no ear pain - Cardiovascular: No syncope, no chest pain, no palpitations - Gastrointestinal: No vomiting or diarrhea - Endocrine: No polyuria polydipsia no heat intolerance - Genitourinary: No dysuria - Skin: No new complaints Physical Exam General: Cooperative, healthy appearing, comfortable, no acute distress Orientation: Patient oriented x3 Head: Normal to inspection Ears: Within normal limit visually Nose: Normal external nose present Face and sinus: Normal facial exam Eyes: Appearance normal, extraocular movement intact pupils reactive Neck: Normal visual inspection and supple Respiratory: Normal respiratory effort and able to speak in complete sentences. Clear to auscultation, no stridor Cardiovascular: S1 and S2 RRR Breast exam declined GI: Normal to inspection. Soft to palpation and nontender Skin: Turgor normal, no acute findings Neuro: Patient oriented x3, motor sensory intact, balance intact, tandem pass, patient was found to be slow to process information Extremities: Normal to inspection [facility] Surgical History No pertinent past surgical history Social History Housing: Apartment Patient Tobacco Use Status: Never used Tobacco e-Cigarette/Vaping Use: Never Used service: No Current occupational status: employed Cognitive needs: No Hearing needs: No Vision needs: Yes Questionnaire Thrive Questionnaire Date Thrive assessed: 08/02/24 I am a: Patient What is your living situation today?: I have a steady place to live Within the past 12 months, did the food you bought not last and you didn't have the money to get more?: Never true Within the past 12 months, did you worry whether your food would run out before you got money to buy more?: Never true Do you have trouble paying for medicines?: No Do you have trouble getting transportation to medical appointments?: No Do you have trouble paying your heating and electricity bill?: No Do you have trouble taking care of your child, family member or friend?: No Do you have trouble with day-to-day activities such as bathing, preparing meals, shopping, managing finances, etc.?: No Are you currently unemployed and looking for a job?: Yes Are you interested in more education?: No Currently or been in a relationship where the following occur: No concerns reported THRIVE Score: 0 GIOVANI-7 AMB Questionnaire GIOVANI-7 Date GIOVANI - 7 assessed: 08/02/24 Source: Developed by Drs. Abdirahman Bey, Renee Castrejon, Horacio Nelson and colleagues, with an educational bill from [employer]. Physical exam (Primary Care) Vital Signs: Last Vital Signs Pulse 90 02/19/25 12:18 BP 136/82 02/19/25 12:18 Pulse Ox 96 02/19/25 12:18 BMI result Body Mass Index 27.2 Tobacco/Smoking Status: Tobacco use Status Tobacco use date assessed 08/02/24 02/19/25 12:21 Patient Tobacco Use Status Never used Tobacco 02/19/25 12:21 e-Cigarette/Vaping Use Never Used 02/19/25 12:21 Thrive Assessment: Date of Thrive Assessment Date Thrive assessed 08/02/24 02/19/25 12:21 Currently or been in a relationship where the following occur: No concerns reported Coding Level of Care Code Est Pt Level 4 (70401) Est Pt Prev Care 40-64y(08410) Diagnoses Encounter for general adult medical examination with abnormal findings Z00.01 Hair loss L65.9 Vitamin D deficiency E55.9 Stomach irritation K31.89 Assessment & Plan Assessment & Plan (1) Encounter for general adult medical examination with abnormal findings: Code(s): Z00.01 - Encounter for general adult medical examination with abnormal findings Category: Medical (2) Hair loss: Code(s): L65.9 - Nonscarring hair loss, unspecified Category: Medical (3) Vitamin D deficiency: Code(s): E55.9 - Vitamin D deficiency, unspecified Category: Medical (4) Stomach irritation: Code(s): K31.89 - Other diseases of stomach and duodenum Category: Medical Plan History of Present Illness The patient is a 44-year-old female presenting with gastrointestinal symptoms and for an annual physical examination. Anxiety: - The patient previously took escitalopram for anxiety but has stopped. - Denies current need for medication; reports no ongoing anxiety symptoms. Gastritis: - Patient reports episodes of nausea, often after consuming certain foods such as coffee, acidic foods like spaghetti and pizza. - Experiences bloating, suggesting irritation in the stomach lining. Hair Loss: - Reports significant hair loss but denies seeing whole strands falling out. Constipation: - Reports stool as hard and bulky, indicating constipation. - Instruction was given to increase fiber intake and hydrate more. Vitamin D Deficiency: - Not currently taking any medications, including vitamin D supplements. - Vitamin D deficiency was mentioned as a possible contributing factor to hair loss. Tetanus Immunization Overdue: - Per conversation, tetanus vaccine is due patient was instructed to get it from pharmacy Social History: - Patient denies current medication use. - Dietary habits: Patient consumes foods that may irritate the stomach (coffee, acidic foods). Health Maintenance - Mammogram: Patient is overdue for a mammogram at the [facility]. - Tetanus vaccine: Discussed the need for vaccination every 10 years. - Laboratory tests: Blood work for anemia, kidney function, liver enzymes, cholesterol, and additional urine test arranged. Lab order was placed in July and still not done Patient Instructions - Conduct blood work as requested today. - Avoid foods that may irritate the stomach such as coffee and acidic foods. - Increase hydration and dietary fiber to help with constipation. - Discussed stool softeners as an option if necessary. - Begin treatment with omeprazole for stomach irritation. - Review dietary patterns that may affect gastric symptoms. Telemedicine in 2 weeks to follow-up on bloating and nausea, and Labs Physical exam in 1 year Orders: Orders MM tomosynthesis screening BI Today Z12.31 - Encounter for screening mammogram for malignant neoplasm of breast UA CC w/rflx Micro + Cult Today Z00.01 - Encounter for general adult medical examination with abnormal findings Medications: New omeprazole 20 mg PO DAILY 90 caps 0RF Refilled cholecalciferol (vitamin D3) 25 mcg PO DAILY 90 caps 0RF 90 days Discontinued escitalopram oxalate (Lexapro) Discontinued Reason: Doctor's Order 10 mg PO DAILY 30 tabs 0RF furosemide (Lasix) Discontinued Reason: Doctor's Order 20 mg PO QAM 14 tabs 0RF
--- OUTSIDE RECORDS SUMMARY | 2025-02-19 15:19 | XMS_ITS ---
Author Name [facility] Organization Unknown Care Team Organization Name Specialty Phone Email Start Date End Da te [facility] Ermelinda Lerma Primary [facility] 03/15/2023 01/29/2024 [facility] CAROLYN CARLTON Primary Care 04/19/2022 01/29/20 24
== END 2025-02-19 12:42 | disposition home or self-care (01) ==
LOC: HO.HMCC 12:10
PROVIDERS: PCP Internal Medicine; Visit Provider Internal Medicine
DX: Z00.01 Encounter for general adult medical examination with abnormal findings (principal); L65.9 Nonscarring hair loss, unspecified; E55.9 Vitamin D deficiency, unspecified; K31.89 Other diseases of stomach and duodenum

== ENCOUNTER 2025-02-19 12:09 | Outpatient (REF) | payer OTHER, SELFPAY ==
[2025-02-19 16:18] LABS: MANUAL DIFF FLAG NO
[2025-02-19 16:22] LABS: Appearance Urine Clear; Glucose Urine UA Negative (Negative); PH 5.0 (5.0-9.0); Specific Gravity - Urine 1.020 (1.005-1.025)
[2025-02-19 16:27] LABS: Hematocrit 44.5 % (37.0-47.0); Hemoglobin 14.6 g/dl (12.0-16.0); Imm Gran Abs Auto 0.02 X10*3/uL (0.00-0.03); Imm Gran Pct Auto 0.2 % (0.0-0.4); Lymphocytes Absolute Auto 1.8 X10*3/uL (1.2-4.9); Mean Corpuscular HGB Conc 32.8 g/dl (31.0-35.0); Mean Corpuscular Hemoglobin 29.1 pg (27.0-33.0); Mean Corpuscular Volume 88.8 fL (80.0-98.0); NRBC Abs Auto 0.000 X10*3/uL (0.0-0.012); NRBC Pct Auto 0.0 /100WBC (0.0-0.2); Platelet Count 306 X10*3/uL (160-400); Red Blood Count 5.01 X10*6/uL (4.20-5.50); White Blood Count 8.4 X10*3/uL (4.8-10.8)
[2025-02-19 16:58] LABS: Alanine Aminotransferase 16 U/L (0-31); Albumin Level 4.5 g/dL (3.5-5.0); Alkaline Phosphatase 61 U/L (39-117); Anion Gap 12 (12-20); Aspartate Amino Transferase 21 U/L (5-31); Blood Urea Nitrogen 10 mg/dL (9-16); Calcium 9.3 mg/dL (8.4-10.2); Carbon Dioxide 27 mmol/L (22-29); Chloride 105 mmol/L (96-108); Estimated Glomerular Filt Rate > 60; Potassium 4.0 mmol/L (3.3-5.1); Sodium 140 mmol/L (135-145); Total Protein 7.3 g/dL (6.5-8.0)
[2025-02-23 15:23] LABS: Vitamin D 25-OH, D2 <4 ng/mL; Vitamin D 25-OH, D3 17 ng/mL; Vitamin D 25-OH, Total 17 ng/mL (30-100)
== END 2025-02-19 12:10 | disposition home or self-care (01) ==
LOC: HO.HMGCLDS 12:09
PROVIDERS: PCP Internal Medicine; Visit Provider Internal Medicine
DX: Z00.01 Encounter for general adult medical examination with abnormal findings (principal); M79.671 Pain in right foot; M79.672 Pain in left foot; R60.0 Localized edema; L65.9 Nonscarring hair loss, unspecified; E55.9 Vitamin D deficiency, unspecified; K31.89 Other diseases of stomach and duodenum; Z79.899 Other long term (current) drug therapy
CPT/HCPCS: 36415; 80053; 81003; 82306; 83721; 84443; 85025; 99212; 99396

== ENCOUNTER 2025-03-06 08:54 | Outpatient (AMB) | payer OTHER, SELFPAY ==
--- NOTE | 2025-03-06 09:48 | A.OFFPC_ITS ---
Intake Visit Reasons: 2 weeks f/up-telehealth Allergies No Known Allergies Allergy (Verified 02/19/25 12:18) Medication List - Last Reconciled 03/06/25 by Rosanne Ring MD cholecalciferol (vitamin D3) 25 mcg PO DAILY 90 days multivitamin 1 tab PO QAM omeprazole 20 mg PO DAILY Tobacco use date assessed: 08/02/24 Dental Screening Dental Screen Date: 08/02/24 HPI 2 weeks f/up-telehealth HPI Details History of Present Illness The patient is a 44-year-old female presenting with stomach issues and laboratory result review. Stomach Issues: - The patient reports that her stomach i s feeling better currently, indicating an improvement. - She is taking omeprazole as a prescrib ed medication to manage these symptoms. Hyperlipidemia (Cholesterol Elevation): - Reported increase in cholesterol, with LDL levels rising from 124 in June of last year to 150 in recent lab results. - The patient noted that her blood tests , both last year and currently, were not fasting labs. - She expresses concern about the non-fa sting state affecting the cholesterol results. Medical History: - Reports no history of anemia, kidney d ysfunction, or liver issues, as per recent labs. Medications: - Omeprazole for stomach issues. - Vitamin D supplementation for vitamin deficiency. Diagnostic Results: - Labs: - Blood counts: Normal, no anemi a. - Electrolytes: Normal. - Kidney function tests: Normal. - Liver function tests: Normal. - Glucose levels: Normal. - LDL Cholesterol increased from 124 to 150 in recent lab results. - Vitamin D level: 17, indicating a defi ciency. Problem List - Stomach issues - Hyperlipidemia - Vitamin D deficiency Patient Instructions - Continue taking omeprazole as advised. - Ensure daily intake of prescribed Kianna min D supplements. - Plan to grain picker Vitamin D from the [facility] if not already done. - Contact the manager medical stas lundy the need for transportation assistance for visits. - fasting lab order placed Review of Systems - General: No fever no chills - Neurological: No headaches no dizziness - Ear nose throat: No sore throat no hearing difficulty no ear pain - Cardiovascular: No syncope, no chest pain, no palpitations - Gastrointestinal: No nausea vomiting or diarrhea PFSH Surgical History No pertinent past surgical history Social History Housing: Apartment Patient Tobacco Use Status: Never used Tobacco e-Cigarette/Vaping Use: Never Used service: No Current occupational status: employed Cognitive needs: No Hearing needs: No Vision needs: Yes Questionnaire Thrive Questionnaire Date Thrive assessed: 08/02/24 GIOVANI-7 AMB Questionnaire GIOVANI-7 Date GIOVANI - 7 assessed: 08/02/24 Source: Developed by Drs. Abdirahman Bey, Renee Castrejon, Horacio Nelson and colleagues, with an educational bill from [employer]. Physical exam (Primary Care) Tobacco/Smoking Status: Tobacco use Status Tobacco use date assessed 08/02/24 03/06/25 09:49 Patient Tobacco Use Status Never used Tobacco 03/06/25 09:49 e-Cigarette/Vaping Use Never Used 03/06/25 09:49 Thrive Assessment: Date of Thrive Assessment Date Thrive assessed 08/02/24 03/06/25 09:49 Telehealth Telehealth Telehealth Platform: [employer] Location of provider rendering services: practice address Location of patient: address on file Patient Identification confirmed using: Name, : Yes Telehealth method: video (attempted) Patient verbally consented to treatment: Yes Patient verbally consented to billing insurance company: Yes Patient informed of any privacy concerns related to visit: Yes Minutes spent on Phone/Video with Pt.: 13 Coding Level of Care Code Tele Est Pt Level 3 (29578) Diagnoses Chronic GERD K21.9 Lipid disorder E78.9 Vitamin D deficiency E55.9 Assessment & Plan Assessment & Plan (1) Chronic GERD: Code(s): K21.9 - Gastro-esophageal reflux disease without esophagitis Category: Medical (2) Lipid disorder: Code(s): E78.9 - Disorder of lipoprotein metabolism, unspecified Category: Medical (3) Vitamin D deficiency: Code(s): E55.9 - Vitamin D deficiency, unspecified Category: Medical Plan History of Present Illness The patient is a 44-year-old female presenting with stomach issues and laboratory result review. Stomach Issues: - The patient reports that her stomach is feeling better currently, indicating an improvement. - She is taking omeprazole as a prescribed medication to manage these symptoms. Hyperlipidemia (Cholesterol Elevation): - Reported increase in cholesterol, with LDL levels rising from 124 in June of last year to 150 in recent lab results. - The patient noted that her blood tests, both last year and currently, were not fasting labs. - She expresses concern about the non-fasting state affecting the cholesterol results. Medical History: - Reports no history of anemia, kidney dysfunction, or liver issues, as per recent labs. Medications: - Omeprazole for stomach issues. - Vitamin D supplementation for vitamin deficiency. Diagnostic Results: - Labs: - Blood counts: Normal, no anemia. - Electrolytes: Normal. - Kidney function tests: Normal. - Liver function tests: Normal. - Glucose levels: Normal. - LDL Cholesterol increased from 124 to 150 in recent lab results. - Vitamin D level: 17, indicating a deficiency. Problem List - Stomach issues - Hyperlipidemia - Vitamin D deficiency Patient Instructions - Continue taking omeprazole as advised. - Ensure daily intake of prescribed Vitamin D supplements. - Plan to grain picker Vitamin D from the pharmacy if not already done. - Contact the manager medical regarding the need for transportation assistance for visits. - fasting lab order placed Medications: Refilled cholecalciferol (vitamin D3) 25 mcg PO DAILY 90 caps 0RF 90 days
== END 2025-03-06 10:14 | disposition home or self-care (01) ==
LOC: HO.HMCC 08:54
PROVIDERS: PCP Internal Medicine; Visit Provider Internal Medicine
DX: K21.9 Gastro-esophageal reflux disease without esophagitis (principal); E78.9 Disorder of lipoprotein metabolism, unspecified; E55.9 Vitamin D deficiency, unspecified